=== PATIENT | female | born 1980 | race Two or more races ===

== ENCOUNTER 2016-05-02 22:16 | Inpatient (IN) | payer OTHER ==
[~2016-05-02] VITALS: Ht 149.9 cm; Wt 63.0 kg
[2016-05-02] MEDS ORDERED: PIPERACILLIN /TAZOBACTAM 3.375 G in IV D5W 50 ML IV ONE (22:30)
[2016-05-02] MEDS ORDERED: GENTAMICIN 80 MG in IV D5W 50 ML IV ONE (22:30)
[2016-05-02] MEDS ORDERED: VANCOMYCIN 1 GM in IV D5W 250 ML IV ONE (22:30)
[2016-05-02] MEDS ORDERED: IV NS 0.9% 1,000 ML BAG IV ONE (22:30)
[2016-05-02] MEDS ORDERED: ACETAMINOPHEN ES 500 MG TABLET ONE (22:50)
[2016-05-02] MEDS ORDERED: IV NS 0.9% 2,000 ML ONE (22:50)
[2016-05-02] MEDS ORDERED: IV SET PRIMARY 1 EA INFUS.SET MC ONE (22:50)
[2016-05-02] MEDS ORDERED: ACETAMINOPHEN ES 500 MG TABLET PO ONE (23:00)
[2016-05-02] MEDS ORDERED: IV SET PRIMARY PUMP SET 1 EA INFUS.SET MC ONE ×3 (23:12→23:57)
[2016-05-02] MEDS ORDERED: IV D5W 50 ML IV ONE ×2 (23:27→23:57)
[2016-05-02] MEDS ORDERED: PIPERACILLIN /TAZOBACTAM 3.375 G VIAL IV ONE (23:27)
[2016-05-02 23:30] LABS: DIFF TOTAL % 100 %; HEMATOCRIT 23 % (33-45); LYMPHOCYTES # (AUTO) 0.3 /CMM (0.8-4.8); LYMPHOCYTES % (AUTO) 4.3 % (20.0-44.0); MEAN CORPUSCULAR HEMOGLOBIN 17 PG (26.0-33.0); MEAN CORPUSCULAR HGB CONC 30 g/dl (31.0-36.0); MEAN CORPUSCULAR VOLUME 58 fL (82-100); MONOCYTES # (AUTO) 0.2 /CMM (0.1-1.30); MONOCYTES % (AUTO) 3.7 % (2.0-12.0); NEUTROPHILS # (AUTO) 5.5 /CMM (1.8-8.9); PLATELET COUNT (AUTO) 140 /CMM (150-450); RED BLOOD CELL COUNT(AUTO) 3.92 MIL/uL (4.0-5.2)
[2016-05-02 23:35] LABS: ANION GAP 15 (5-14); CALCIUM, SERUM 8.7 mg/dL (8.5-10.1); CARBON DIOXIDE 24 mmol/L (21-32); CHLORIDE 93 mmol/L (98-107); CREATININE 0.8 mg/dL (0.6-1.3); GFR 82 mL/min (>60); GLUCOSE 83 mg/dL (74-106); INR 1.26 (0.87-1.13); PROTHROMBIN TIME 13.6 SECS (9.5-12.7); SODIUM SERUM 128 mmol/L (136-145); UREA NITROGEN, BLOOD 17 mg/dL (7-18)
[2016-05-02 23:41] LABS: ALANINE AMINOTRANSFERASE 28 U/L (12-78); ALBUMIN 2.3 g/dL (3.4-5.0); ASPARTATE AMINOTRANSFERASE 54 U/L (15-37); BILIRUBIN,DIRECT 0.9 mg/dL (0.0-0.2); INDIRECT BILIRUBIN 1.1 mg/dL (0.0-1.1); TOTAL PROTEIN, SERUM 8.2 g/dL (6.4-8.2)
[2016-05-02 23:44] LABS: LACTIC ACID 3.9 mmol/L (0.4-2.0); TROPONIN I 1.542 ng/mL (0.00-0.056)
[2016-05-02 23:49] LABS: HEMOGLOBIN 6.8 g/dL (11.5-14.8)
[2016-05-02 23:53] LABS: BAND % (MANUAL) 9 % (0.0-5.0); HYPOCHROMASIA 1+; LYMPHOCYTES % (MANUAL) 5 % (16-48); PLATELET ESTIMATE DECREASED
[2016-05-02 23:54] LABS: ANISOCYTOSIS 1+; MICROCYTOSIS 1+
[2016-05-02] MEDS ORDERED: GENTAMICIN 80 MG/2 ML VIAL ONE (23:57)
[2016-05-03] VITALS (21 sets, daily range): BP systolic 92–122; BP diastolic 45–71
[2016-05-03] MEDS ORDERED: ASPIRIN 325 MG TABLET PO ONE
[2016-05-03] MEDS ORDERED: ASPIRIN 81 MG TAB.CHEW ONE (00:10)
[2016-05-03 00:26] LABS: *LACTIC ACID REFLEX FLAG YES
[2016-05-03 00:56] LABS: KETONES,URINE NEGATIVE (NEGATIVE); LEUKOCYTE ESTERASE ,URINE NEGATIVE (NEGATIVE); PH,URINE 5.5 (5.0-8.0)
[2016-05-03 00:59] LABS: ADD UA MICROSCOPIC YES
[2016-05-03] MEDS ORDERED: IV NS 0.9% 1,000 ML IV PRN (01:08)
[2016-05-03 01:11] LABS: ADD URINE CULTURE NO; WBC,URINE 0-2 /HPF (0-3)
[2016-05-03] MEDS ORDERED: IV D5W 250 ML IV ONE (01:16)
[2016-05-03] MEDS ORDERED: VANCOMYCIN 1 GM VIAL ONE (01:16)
[2016-05-03] MEDS ORDERED: IV SET PRIMARY PUMP SET 1 EA INFUS.SET MC ONE ×3 (01:17→11:31)
[2016-05-03] MEDS ORDERED: VANCOMYCIN 1 GM in IV D5W 250 ML IV SCH (01:30)
[2016-05-03] MEDS ORDERED: ONDANSETRON HCL/PF 4 MG/2 ML VIAL IVP PRN (01:30)
[2016-05-03] MEDS ORDERED: MORPHINE SULFATE INJ 4 MG/ML DISP.SYRIN IV PRN (01:30)
[2016-05-03] MEDS ORDERED: ACETAMINOPHEN 325 MG TABLET PO PRN ×2 (01:30→09:30)
[2016-05-03] MEDS ORDERED: ENOXAPARIN SODIUM 40 MG/0.4 ML DISP.SYRIN SQ SCH (01:30)
[2016-05-03] MEDS ORDERED: ZOLPIDEM TARTRATE 5 MG TABLET PO PRN (01:30)
[2016-05-03] MEDS ORDERED: MAGNESIUM HYDROXIDE 30 ML UDC PO PRN (01:30)
[2016-05-03 01:47] LABS: IRON, SERUM 6 ug/dl (50-175); PERCENT SATURATION 2 % (14-33); TOTAL IRON BINDING CAPACITY 259 ug/dl (250-450)
[2016-05-03] MEDS ORDERED: ENOXAPARIN SODIUM 40 MG/0.4 ML DISP.SYRIN SQ ONE (04:14)
[2016-05-03] MEDS ORDERED: D5W IV SCH (05:00)
[2016-05-03] MEDS ORDERED: GENTAMICIN IV SCH (05:00)
[2016-05-03] MEDS ORDERED: PIPERACILLIN /TAZOBACTAM 3.375 G VIAL IV ONE (05:12)
[2016-05-03] MEDS ORDERED: IV D5W 50 ML IV ONE (05:13)
[2016-05-03] MEDS ORDERED: SECONDARY IV SET 1 EA INFUS.SET MC ONE ×2 (05:15→11:31)
[2016-05-03] MEDS ORDERED: IV NS 0.9% 1,000 ML ONE (05:16)
[2016-05-03] MEDS: PIPERACILLIN /TAZOBACTAM 3.375 G in IV D5W 50 ML IV SCH ×3 (05:34→18:18)
[2016-05-03] MEDS ORDERED: ASPIRIN 81 MG TAB.CHEW PO SCH (09:00)
[2016-05-03] MEDS ORDERED: BLOOD IV SET 1 EA INFUS.SET MC ONE (09:04)
[2016-05-03] MEDS ORDERED: IV NS 0.9% 250 ML IV ONE (09:04)
[2016-05-03] MEDS: PANTOPRAZOLE 40 MG TABLET.DR PO SCH (09:31)
[2016-05-03] MEDS ORDERED: FEE PK DOSING 1 MIN EA MC ONE ×2 (09:36)
[2016-05-03] MEDS: Thiamine 100 MG in IV D5W 50 ML IV SCH (11:44)
[2016-05-03] MEDS: Potassium Chloride 10 MEQ in IV D5/ 0.9% NACL 1,000 ML IV PRN ×2 (11:44→19:16)
[2016-05-03] MEDS: Folic acid 1 MG in IV D5W 50 ML IV SCH (11:44)
[2016-05-03] MEDS: VANCOMYCIN 0.75 GM in IV D5W 250 ML IV SCH ×2 (12:05→18:18)
[2016-05-03] MEDS: GENTAMICIN 80 MG in IV D5W 50 ML IV SCH ×3 (12:10→22:59)
[2016-05-03] MEDS ORDERED: FERROUS SULFATE (325 MG) 325 MG/TAB TABLET PO SCH (12:30)
[2016-05-03] MEDS: FERROUS SULFATE (325 MG) 325 MG/TAB TABLET PO SCH ×2 (12:49→18:18)
[2016-05-03 13:06] LABS: ABG BASE EXCESS 3.4 mmol/L; ABG HCO3 26.3 mmol/L; ABG PCO2 32.1 mmHg (35.0-45.0); ABG PH 7.531 (7.350-7.450); ABG PO2 103.9 mmHg (75.0-100.0); ABG TOTAL HEMOGLOBIN 6.5 G/dL (12.0-16.0); ALLEN TEST Pass; AaDO2 57.9 mmHg
[2016-05-03 13:56] LABS: DIFF TOTAL % 100 %; LYMPHOCYTES # (AUTO) 0.6 /CMM (0.8-4.8); MEAN CORPUSCULAR HEMOGLOBIN 17 PG (26.0-33.0); MEAN CORPUSCULAR HGB CONC 30 g/dl (31.0-36.0); MEAN CORPUSCULAR VOLUME 57 fL (82-100); MONOCYTES # (AUTO) 0.4 /CMM (0.1-1.30); MONOCYTES % (AUTO) 5.6 % (2.0-12.0); NEUTROPHILS # (AUTO) 5.9 /CMM (1.8-8.9); NEUTROPHILS % (AUTO) 85.4 % (43.0-81.0); PLATELET COUNT (AUTO) 97 /CMM (150-450); RED BLOOD CELL COUNT(AUTO) 3.51 MIL/uL (4.0-5.2); WHITE BLOOD COUNT (AUTO) 6.9 K/uL (4.3-11.0)
[2016-05-03 13:58] LABS: HEMATOCRIT 20 % (33-45); HEMOGLOBIN 6.1 g/dL (11.5-14.8)
[2016-05-03] MEDS ORDERED: SOD FERRIC GLUC 125 MG in IV NS 0.9% 100 ML IV SCH (14:00)
[2016-05-03 16:12] LABS: INR 1.23 (0.87-1.13); PROTHROMBIN TIME 13.3 SECS (9.5-12.7)
[2016-05-03 16:23] LABS: CHOLESTEROL 51 mg/dL (<200); LDL 16 mg/dL (0-99); TRIGLYCERIDES 126 mg/dL (30-150)
[2016-05-03 16:28] LABS: ANION GAP 11 (5-14); CALCIUM, SERUM 8.1 mg/dL (8.5-10.1); CARBON DIOXIDE 28 mmol/L (21-32); CHLORIDE 99 mmol/L (98-107); CREATININE 0.7 mg/dL (0.6-1.3); GFR 95 mL/min (>60); GLUCOSE 157 mg/dL (74-106); PHOSPHORUS 2.3 mg/dL (2.5-4.9); POTASSIUM 3.1 mmol/L (3.5-5.1); SODIUM SERUM 135 mmol/L (136-145); UREA NITROGEN, BLOOD 13 mg/dL (7-18)
[2016-05-03 16:33] LABS: THYROID STIMULATING HORMONE 1.767 uIU/mL (0.358-3.74)
[2016-05-03 16:54] LABS: BAND % (MANUAL) 7 % (0.0-5.0); LYMPHOCYTES % (MANUAL) 6 % (16-48)
[2016-05-03 16:55] LABS: ANISOCYTOSIS 1+; HYPOCHROMASIA 1+; MICROCYTOSIS 1+; PLATELET ESTIMATE DECREASED; POLYCHROMASIA 1+; ROULEAUX 1+
[2016-05-03 17:14] LABS: HDL CHOLESTEROL < 10 mg/dL (40-60)
[2016-05-03 17:48] LABS: BILIRUBIN,DIRECT 0.8 mg/dL (0.0-0.2); BILIRUBIN,TOTAL 1.5 mg/dL (0.2-1.0); INDIRECT BILIRUBIN 0.7 mg/dL (0.0-1.1)
[2016-05-03] MEDS ORDERED: LORAZEPAM INJ 2 MG/ML VIAL IV PRN (18:30)
[2016-05-03 20:19] LABS: HEMOGLOBIN 7.2 g/dL (11.5-14.8)
[2016-05-03 20:44] LABS: CREATININE, URINE 16.7 MG/DL (30.0-125.0)
[2016-05-03] MEDS ORDERED: LORAZEPAM INJ 2 MG/ML VIAL ONE (22:14)
[2016-05-03] MEDS: LORAZEPAM INJ 2 MG/ML VIAL IV PRN (22:20)
[2016-05-04] VITALS (34 sets, daily range): BP systolic 85–127; BP diastolic 42–74
[2016-05-04] MEDS: PIPERACILLIN /TAZOBACTAM 3.375 G in IV D5W 50 ML IV SCH ×5 (00:15→23:56)
[2016-05-04] MEDS: VANCOMYCIN 0.75 GM in IV D5W 250 ML IV SCH (02:48)
[2016-05-04 04:58] LABS: HEMATOCRIT 24 % (33-45); HEMOGLOBIN 7.7 g/dL (11.5-14.8); MEAN CORPUSCULAR HEMOGLOBIN 19 PG (26.0-33.0); MEAN CORPUSCULAR HGB CONC 32 g/dl (31.0-36.0); MEAN CORPUSCULAR VOLUME 61 fL (82-100); PLATELET COUNT (AUTO) 124 /CMM (150-450); RED BLOOD CELL COUNT(AUTO) 3.98 MIL/uL (4.0-5.2); WHITE BLOOD COUNT (AUTO) 8.1 K/uL (4.3-11.0)
[2016-05-04] MEDS: Potassium Chloride 10 MEQ in IV D5/ 0.9% NACL 1,000 ML IV PRN (05:09)
[2016-05-04 05:18] LABS: BILIRUBIN,DIRECT 0.4 mg/dL (0.0-0.2); CALCIUM, SERUM 7.9 mg/dL (8.5-10.1); CREATININE 0.7 mg/dL (0.6-1.3); INDIRECT BILIRUBIN 0.6 mg/dL (0.0-1.1); PHOSPHORUS 1.3 mg/dL (2.5-4.9); POTASSIUM 2.9 mmol/L (3.5-5.1)
[2016-05-04 06:01] LABS: PROTHROMBIN TIME 11.5 SECS (9.5-12.7)
[2016-05-04 06:02] LABS: INR 1.06 (0.87-1.13)
[2016-05-04 06:35] LABS: BAND % (MANUAL) 10 % (0.0-5.0); BASOPHILS % (MANUAL) 0 % (0.0-2.0); EOSINOPHILS % (MANUAL) 1 % (0-4); LYMPHOCYTES % (MANUAL) 10 % (16-48)
[2016-05-04 06:36] LABS: ANISOCYTOSIS 2+; HYPOCHROMASIA 1+; MICROCYTOSIS 2+; PLATELET ESTIMATE DECREASED
[2016-05-04] MEDS: PANTOPRAZOLE 40 MG TABLET.DR PO SCH (07:30)
[2016-05-04] MEDS: FERROUS SULFATE (325 MG) 325 MG/TAB TABLET PO SCH ×2 (09:00→16:00)
[2016-05-04] MEDS ORDERED: ENOXAPARIN SODIUM 40 MG/0.4 ML DISP.SYRIN SQ SCH (09:00)
[2016-05-04] MEDS ORDERED: Z GUARD REMEDY 2 OZ OINT TP PRN (09:30)
[2016-05-04] MEDS ORDERED: POTASSIUM PHOSPHATE MM 15 MMOL in IV D5W 250 ML IV SCH (09:30)
[2016-05-04] MEDS ORDERED: IV NS 0.9% 250 ML IV ONE (09:31)
[2016-05-04] MEDS: Magnesium 1GM/D5W 100ML PREMIX 100 ML IV SCH ×4 (10:30→12:11)
[2016-05-04] MEDS ORDERED: SECONDARY IV SET 1 EA INFUS.SET MC ONE (10:55)
[2016-05-04] MEDS ORDERED: IV SET PRIMARY PUMP SET 1 EA INFUS.SET MC ONE (10:55)
[2016-05-04] MEDS: Folic acid 1 MG in IV D5W 50 ML IV SCH (10:59)
[2016-05-04] MEDS: GENTAMICIN 80 MG in IV D5W 50 ML IV SCH ×2 (10:59→17:40)
[2016-05-04] MEDS: Thiamine 100 MG in IV D5W 50 ML IV SCH (10:59)
[2016-05-04] MEDS: Z GUARD REMEDY 2 OZ OINT TP SCH (11:00)
[2016-05-04] MEDS ORDERED: VANCOMYCIN 1 GM in IV D5W 250 ML IV SCH (11:00)
[2016-05-04] MEDS: POTASSIUM PHOSPHATE MM 7.5 MMOL in IV D5W 100 ML IV SCH ×2 (11:00→12:41)
[2016-05-04] MEDS: NEOMY SULF/BACITRAC ZN/POLY 15 GM TUBE TP SCH (11:00)
[2016-05-04] MEDS ORDERED: POTASSIUM CL. PREMIX PERIPHER. 50 ML IV SCH (11:30)
[2016-05-04] MEDS: POTASSIUM CL. PREMIX PERIPHER. 50 ML IV SCH ×4 (16:00→17:27)
[2016-05-04] MEDS: FUROSEMIDE 20 MG/2 ML VIAL IV SCH (16:00)
[2016-05-04 16:03] LABS: ABG BASE EXCESS 1.6 mmol/L; ABG HCO3 24.8 mmol/L; ABG PCO2 33.2 mmHg (35.0-45.0); ABG PH 7.492 (7.350-7.450); ABG PO2 78.6 mmHg (75.0-100.0); AaDO2 74.7 mmHg
[2016-05-04] MEDS: VANCOMYCIN 1 GM in IV D5W 250 ML IV SCH (19:55)
[2016-05-05] VITALS (24 sets, daily range): BP systolic 92–123; BP diastolic 31–62
[2016-05-05 02:19] LABS: HIV SCRN 4G wRFX Non Reactive (Non Reactive)
[2016-05-05] MEDS: GENTAMICIN 80 MG in IV D5W 50 ML IV SCH ×2 (03:22→11:02)
[2016-05-05] MEDS: VANCOMYCIN 1 GM in IV D5W 250 ML IV SCH ×3 (04:26→21:12)
[2016-05-05 04:48] LABS: BASOPHILS % (AUTO) 0.1 % (0.0-2.0); DIFF TOTAL % 100 %; HEMATOCRIT 26 % (33-45); HEMOGLOBIN 8.1 g/dL (11.5-14.8); LYMPHOCYTES # (AUTO) 1.2 /CMM (0.8-4.8); LYMPHOCYTES % (AUTO) 12.4 % (20.0-44.0); MEAN CORPUSCULAR HEMOGLOBIN 19 PG (26.0-33.0); MEAN CORPUSCULAR HGB CONC 31 g/dl (31.0-36.0); MEAN CORPUSCULAR VOLUME 61 fL (82-100); MONOCYTES # (AUTO) 0.7 /CMM (0.1-1.30); MONOCYTES % (AUTO) 7.2 % (2.0-12.0); NEUTROPHILS # (AUTO) 7.8 /CMM (1.8-8.9); NEUTROPHILS % (AUTO) 80.3 % (43.0-81.0); PLATELET COUNT (AUTO) 139 /CMM (150-450); RED BLOOD CELL COUNT(AUTO) 4.31 MIL/uL (4.0-5.2); WHITE BLOOD COUNT (AUTO) 9.7 K/uL (4.3-11.0)
[2016-05-05 05:06] LABS: BILIRUBIN,DIRECT 0.3 mg/dL (0.0-0.2); INDIRECT BILIRUBIN 0.7 mg/dL (0.0-1.1)
[2016-05-05 05:12] LABS: CREATININE 0.6 mg/dL (0.6-1.3)
[2016-05-05 05:18] LABS: POTASSIUM 2.6 mmol/L (3.5-5.1)
[2016-05-05 06:03] LABS: BAND % (MANUAL) 6 % (0.0-5.0); BASOPHILS % (MANUAL) 0 % (0.0-2.0); EOSINOPHILS % (MANUAL) 1 % (0-4); LYMPHOCYTES % (MANUAL) 12 % (16-48)
[2016-05-05 06:04] LABS: ANISOCYTOSIS 2+; HYPOCHROMASIA 2+; MICROCYTOSIS 2+; PLATELET ESTIMATE DECREASED
[2016-05-05] MEDS: PIPERACILLIN /TAZOBACTAM 3.375 G in IV D5W 50 ML IV SCH ×2 (06:15→13:20)
[2016-05-05] MEDS ORDERED: IV SET PRIMARY PUMP SET 1 EA INFUS.SET MC ONE (06:33)
[2016-05-05] MEDS ORDERED: POTASSIUM CL. PREMIX PERIPHER. 50 ML ONE (06:33)
[2016-05-05] MEDS: POTASSIUM CL. PREMIX PERIPHER. 50 ML IV SCH ×10 (06:38→15:26)
[2016-05-05 06:52] LABS: INR 1.11 (0.87-1.13)
[2016-05-05] MEDS: FERROUS SULFATE (325 MG) 325 MG/TAB TABLET PO SCH ×2 (08:03→17:56)
[2016-05-05] MEDS: PANTOPRAZOLE 40 MG TABLET.DR PO SCH (08:03)
[2016-05-05] MEDS: FUROSEMIDE 20 MG/2 ML VIAL IV SCH ×2 (08:03→19:13)
[2016-05-05] MEDS: Z GUARD REMEDY 2 OZ OINT TP SCH (08:06)
[2016-05-05] MEDS: NEOMY SULF/BACITRAC ZN/POLY 15 GM TUBE TP SCH (08:06)
[2016-05-05 08:15] LABS: *SPE ALBUMIN 2.2 g/dL (2.9-4.4)
[2016-05-05] MEDS: Magnesium 1GM/D5W 100ML PREMIX 100 ML IV SCH ×2 (08:29→09:20)
[2016-05-05] MEDS: Folic acid 1 MG in IV D5W 50 ML IV SCH (11:08)
[2016-05-05] MEDS: Thiamine 100 MG in IV D5W 50 ML IV SCH (11:45)
[2016-05-05] MEDS: LORAZEPAM INJ 2 MG/ML VIAL IV PRN ×2 (15:08→23:54)
[2016-05-05] MEDS ORDERED: Morphine Sulfate IV (15:12)
[2016-05-05] MEDS ORDERED: THIA100T74 PO (15:12)
[2016-05-05] MEDS ORDERED: PANT40TA2 PO (15:12)
[2016-05-05] MEDS ORDERED: FERR325T28 PO (15:12)
[2016-05-05] MEDS ORDERED: NEOM15OI3 TP (15:12)
[2016-05-05] MEDS ORDERED: PIPE3.379 IV (15:12)
[2016-05-05] MEDS ORDERED: RXGEN XX (15:12)
[2016-05-05] MEDS ORDERED: FURO10VI IV (15:12)
[2016-05-05] MEDS ORDERED: VANC1PLA9 IV (15:12)
[2016-05-05] MEDS ORDERED: LORA2VIA11 IV (15:12)
[2016-05-05] MEDS ORDERED: RXVAN XX (15:12)
[2016-05-05] MEDS ORDERED: CEFTRIAXONE 2 G in IV D5W 100 ML IV SCH (18:30)
[2016-05-06] VITALS: BP 105/55
[2016-05-06 04:00] VITALS: BP 107/53
[2016-05-06] MEDS ORDERED: IV NS 0.9% 250 ML IV ONE (04:35)
[2016-05-06] MEDS: VANCOMYCIN 1 GM in IV D5W 250 ML IV SCH (04:36)
[2016-05-06] MEDS: LORAZEPAM INJ 2 MG/ML VIAL IV PRN ×2 (04:38→13:26)
[2016-05-06 06:42] VITALS: BP 102/56
[2016-05-06 07:30] LABS: DIFF TOTAL % 100 %; HEMATOCRIT 27 % (33-45); HEMOGLOBIN 8.7 g/dL (11.5-14.8); LYMPHOCYTES # (AUTO) 1.1 /CMM (0.8-4.8); LYMPHOCYTES % (AUTO) 11.9 % (20.0-44.0); MEAN CORPUSCULAR HEMOGLOBIN 20 PG (26.0-33.0); MEAN CORPUSCULAR HGB CONC 33 g/dl (31.0-36.0); MEAN CORPUSCULAR VOLUME 60 fL (82-100); MONOCYTES # (AUTO) 0.8 /CMM (0.1-1.30); MONOCYTES % (AUTO) 8.3 % (2.0-12.0); NEUTROPHILS # (AUTO) 7.3 /CMM (1.8-8.9); NEUTROPHILS % (AUTO) 79.8 % (43.0-81.0); PLATELET COUNT (AUTO) 161 /CMM (150-450); RED BLOOD CELL COUNT(AUTO) 4.46 MIL/uL (4.0-5.2); WHITE BLOOD COUNT (AUTO) 9.1 K/uL (4.3-11.0)
[2016-05-06 07:58] LABS: CALCIUM, SERUM 8.5 mg/dL (8.5-10.1); CREATININE 0.6 mg/dL (0.6-1.3); POTASSIUM 3.1 mmol/L (3.5-5.1)
[2016-05-06 08:04] LABS: ANISOCYTOSIS 3+; BAND % (MANUAL) 2 % (0.0-5.0); EOSINOPHILS % (MANUAL) 1 % (0-4); LYMPHOCYTES % (MANUAL) 23 % (16-48); MICROCYTOSIS 3+; PLATELET ESTIMATE ADEQUATE
[2016-05-06 08:05] LABS: HYPOCHROMASIA 2+; SPHEROCYTES 1+; TARGET CELLS 1+
[2016-05-06] MEDS: FERROUS SULFATE (325 MG) 325 MG/TAB TABLET PO SCH (08:40)
[2016-05-06] MEDS: FUROSEMIDE 20 MG/2 ML VIAL IV SCH (08:40)
[2016-05-06] MEDS: PANTOPRAZOLE 40 MG TABLET.DR PO SCH (08:41)
[2016-05-06] MEDS: NEOMY SULF/BACITRAC ZN/POLY 15 GM TUBE TP SCH (08:46)
[2016-05-06] MEDS: Z GUARD REMEDY 2 OZ OINT TP SCH (08:46)
[2016-05-06] MEDS ORDERED: THIAMINE HCL 100 MG TABLET PO SCH (09:00)
[2016-05-06] MEDS ORDERED: FOLIC ACID 1 MG TABLET PO SCH (09:00)
[2016-05-06] MEDS ORDERED: SECONDARY IV SET 1 EA INFUS.SET MC ONE (09:58)
[2016-05-06] MEDS: NAFCILLIN 2 G in IV D5W 50 ML IV SCH ×2 (10:01→12:47)
[2016-05-06] MEDS ORDERED: NYSTATIN TOP POWDER 15 GM BOTTLE TP SCH (10:30)
[2016-05-06] MEDS ORDERED: POTASSIUM CL. PREMIX PERIPHER. 50 ML IV SCH (10:30)
[2016-05-06] MEDS ORDERED: POTASSIUM CHLORIDE 20 MEQ POWDER PACKET PO ONE (10:30)
[2016-05-06 12:00] VITALS: BP 102/55
[2016-05-06] MEDS ORDERED: POTASSIUM CHLORIDE 20 MEQ TAB.PRT.SR PO ONE (12:00)
[2016-05-07] MEDS ORDERED: FUROSEMIDE 20 MG/2 ML VIAL IV SCH (09:00)
== END 2016-05-06 15:06 | disposition short-term general hospital (02) | DRG 720 ==
LOC: ER 22:19 → TELE 05-03 00:34 → TELE-TD 05-03 01:03 → TELE1 05-03 08:59 → ICU 05-03 10:02 → TELE 05-05 21:45
PROVIDERS: ADMIT Nurse Practitioner Acute Care; ATTEND Internal Medicine
PROC: 05H533Z Insertion of Infusion Device into Right Subclavian Vein, Percutaneous Approach (ICD-10-PCS; principal; 2016-05-03)
PROC: 30233N1 Transfusion of Nonautologous Red Blood Cells into Peripheral Vein, Percutaneous Approach (ICD-10-PCS; principal; 2016-05-03)
DX: A41.9 Sepsis, unspecified organism (principal); I21.4 Non-ST elevation (NSTEMI) myocardial infarction; I33.0 Acute and subacute infective endocarditis; J69.0 Pneumonitis due to inhalation of food and vomit; G93.41 Metabolic encephalopathy; E87.2 Acidosis; F11.20 Opioid dependence, uncomplicated; F17.210 Nicotine dependence, cigarettes, uncomplicated; D50.9 Iron deficiency anemia, unspecified; D61.818 Other pancytopenia; L03.115 Cellulitis of right lower limb; L03.116 Cellulitis of left lower limb; E86.0 Dehydration; E87.1 Hypo-osmolality and hyponatremia; F10.20 Alcohol dependence, uncomplicated; E86.1 Hypovolemia; Z86.19 Personal history of other infectious and parasitic diseases; E44.0 Moderate protein-calorie malnutrition; I50.9 Heart failure, unspecified; E87.6 Hypokalemia; B95.61 Methicillin susceptible Staphylococcus aureus infection as the cause of diseases classified elsewhere; E83.39 Other disorders of phosphorus metabolism; E83.42 Hypomagnesemia; F19.10 Other psychoactive substance abuse, uncomplicated; I35.1 Nonrheumatic aortic (valve) insufficiency
CPT/HCPCS: 36415; 36600; 70450-TC; 71010-TC; 76700-TC; 80048-TC; 80061-TC; 80076-TC; 80170-TC; 80202-TC; 81000-TC; 82140-TC; 82247-TC; 82248-TC; 82272-TC; 82570-TC; 82728-TC; 83010; 83540-TC; 83605-TC; 83615-TC; 83735-TC; 83880; 83935-TC; 84100-TC; 84155; 84165; 84300-TC; 84439-TC; 84443-TC; 84484-TC; 84703-TC; 85025-TC; 85027-TC; 85045-TC; 85396; 85730-TC; 86706; 86850-TC; 86901; 86921-TC; 87040-TC; 87081-TC; 87086-TC; 87340; 87522; 93307-TC; 93312-TC; 93970-TC; A4606; A6403; J0696; J1580; J1650; J1940; J2060; J2270; J2543; J2916; J3370; J3411; J3475; J3480; J3490; J7030; J7042; J7050; J7060; P9016-BL; Z7610